=== PATIENT | female | born 1995 | race Two or more races ===

== ENCOUNTER 2024-03-18 09:54 | Observation (INO) | payer MEDICAID ==
[2024-03-18] MEDS ORDERED: PREN-96 PO (10:11)
== END 2024-03-18 11:37 | disposition home or self-care (01) ==
LOC: UNDOADMOB 10:02 → LDRP 10:02 → UNDODISOB 11:37
PROVIDERS: ADMIT Obstetrics & Gynecology; ATTEND Obstetrics & Gynecology
DX: O24.419 Gestational diabetes mellitus in pregnancy, unspecified control (principal); Z3A.38 38 weeks gestation of pregnancy
CPT/HCPCS: 59025; 76818; 81002; 82948; 94760; G0378

== ENCOUNTER 2024-03-25 09:22 | Observation (INO) | payer MEDICAID ==
[~2024-03-25 09:22] MED LIST: PREN-96 PO
== END 2024-03-25 12:42 | disposition home or self-care (01) ==
LOC: UNDOADMOB 11:00 → LDRP 11:00
PROVIDERS: ADMIT Obstetrics & Gynecology; ATTEND Obstetrics & Gynecology
DX: O24.419 Gestational diabetes mellitus in pregnancy, unspecified control (principal); Z3A.34 34 weeks gestation of pregnancy
CPT/HCPCS: 59025; 76818; 81002; 82948; 94760; G0378; 82962

== ENCOUNTER 2024-04-01 10:57 | Observation (INO) | payer MEDICAID | END 2024-04-01 12:38 | disposition home or self-care (01) | LOC: UNDOADMOB 10:57 → LDRP 10:57 → UNDODISOB 12:38 | PROVIDERS: ADMIT Obstetrics & Gynecology; ATTEND Obstetrics & Gynecology | DX: O24.419 Gestational diabetes mellitus in pregnancy, unspecified control (principal); Z3A.35 35 weeks gestation of pregnancy | CPT/HCPCS: 59025; 76818; 81002; 82962; 94760; G0378 ==

== ENCOUNTER 2024-04-08 10:47 | Observation (INO) | payer MEDICAID | END 2024-04-08 14:18 | disposition home or self-care (01) | LOC: LDRP 10:47 | PROVIDERS: ADMIT Obstetrics & Gynecology; ATTEND Obstetrics & Gynecology | DX: O24.419 Gestational diabetes mellitus in pregnancy, unspecified control (principal); Z3A.36 36 weeks gestation of pregnancy | CPT/HCPCS: 59025; 76818; 81002; 82948; 82962; 94760; G0378 ==

== ENCOUNTER 2024-04-15 08:10 | Observation (INO) | payer MEDICAID | END 2024-04-15 12:38 | disposition home or self-care (01) | LOC: LDRP 11:09 → UNDOADMOB 11:09 → LDRP 11:12 | PROVIDERS: ADMIT Obstetrics & Gynecology; ATTEND Obstetrics & Gynecology | DX: O24.419 Gestational diabetes mellitus in pregnancy, unspecified control (principal); O62.9 Abnormality of forces of labor, unspecified; O99.891 Other specified diseases and conditions complicating pregnancy; M54.9 Dorsalgia, unspecified; Z3A.37 37 weeks gestation of pregnancy | CPT/HCPCS: 59025; 76818; 81002; 82948; 82962; 94760; G0378 ==

== ENCOUNTER 2024-04-18 12:34 | Observation (INO) | payer MEDICAID | END 2024-04-18 13:15 | disposition left against medical advice (07) | LOC: LDRP 12:34 | PROVIDERS: ADMIT Obstetrics & Gynecology; ATTEND Obstetrics & Gynecology | DX: O24.419 Gestational diabetes mellitus in pregnancy, unspecified control (principal); Z3A.37 37 weeks gestation of pregnancy ==

== ENCOUNTER 2024-04-21 14:18 | Inpatient (IN) | payer MEDICAID ==
[~2024-04-21] VITALS: Ht 165.1 cm; Wt 81.6 kg
[2024-04-21] MEDS ORDERED: BUTORPHANOL TARTRATE 2 MG/1 ML VIAL IV PRN ×2 (17:00)
[2024-04-21] MEDS ORDERED: LIDOCAINE 2%HCL (LOCAL ANESTH.) INJ 20ML MDV IJ PRN (17:00)
[2024-04-21] MEDS: LACTATED RINGER'S 1,000 ML IV SCH (17:00)
[2024-04-21] MEDS: LACT. RINGERS/OXYTOCIN 20UNITS 1,000 ML IV SCH (17:00)
[2024-04-21 18:41] LABS: Alanine Aminotransferase 13 U/L (7-40); Albumin 4.1 g/dL (3.2-4.8); Alkaline Phosphatase 418 U/L (46-116); Anion Gap 10 (5-15); Aspartate Aminotransferase 14 U/L (13-40); Bilirubin, Total 0.5 mg/dL (0.2-1.0); Blood Urea Nitrogen 13 mg/dL (9-23); Calcium 9.6 mg/dL (8.5-10.1); Carbon Dioxide 20 mmol/L (20-30); Chloride 106 mmol/L (98-107); Glucose 89 mg/dL (74-106); Potassium 3.8 mmol/L (3.5-5.1); Sodium 136 mmol/L (136-145); Total Protein 7.2 g/dL (5.7-8.2)
[2024-04-21 18:41] LABS: Urine Bacteria None Seen /hpf (None Seen)
[2024-04-21 18:48] LABS: Basophils # (auto) 0 10 ^3/uL (0-0.2); Basophils % (auto) 0.4 % (0.0-2.0); Eosinophils # (auto) 0 10 ^3/uL (0-0.8); Eosinophils % (auto) 0.5 % (0.0-7.0); Hematocrit 37.9 % (36.0-46.0); Hemoglobin 12.7 g/dL (12.2-16.2); Lymphocytes # (auto) 1.7 10 ^3/uL (0.4-5.4); Lymphocytes % (auto) 19.1 % (10.0-50.0); Mean Corpuscular Hgb Conc. 33.4 g/dL (32.0-36.0); Mean Corpuscular Volume 83.6 fL (80.0-100.0); Monocytes # (auto) 0.6 10 ^3/uL (0-1.3); Monocytes % (auto) 6.6 % (0.0-12.0); Neutrophils # (auto) 6.7 10 ^3/uL (1.6-8.6); Neutrophils % (auto) 73.4 % (37.0-80.0); Nucleated Red Blood Cells % 0.2 %; Red Blood Cells 4.53 10^6/uL (4.0-5.20); Red Cell Distribution Width 15.5 % (11.8-14.3); White Blood Cell 9.1 10^3/uL (4.4-10.8)
[2024-04-21 19:03] LABS: INR 0.92 (0.9-1.15); Prothrombin Time 9.8 sec (9.3-11.8)
[2024-04-21] MEDS: NALOXONE HCL 0.4 MG/ML VIAL IV ONE (19:45)
[2024-04-21] MEDS: ePHEDrine SULFATE 50 MG/ML AMP ONE (19:47)
[2024-04-21] MEDS: fentaNYL CITRATE 100 MCG/2 ML VL ONE (19:49)
[2024-04-21] MEDS: LIDOCAINE HCL 2 %PF INJ 10ML AMP IJ ONE (19:49)
[2024-04-21 19:52] LABS: Urine Blood Negative /uL (Negative); Urine Clarity Clear (Clear); Urine Color Yellow (Yellow); Urine Mucus FEW (None Seen); Urine Protein, UAD TRACE (Negative); Urine Specific Gravity 1.029 (1.001-1.035); Urine Urobilinogen Normal (Negative); Urine WBC 1 /hpf (0 - 5); Urine pH 6.5 (5.0-9.0)
[2024-04-21] MEDS: PENICILLIN G POT 5MIL/D5 50ML 50 ML IV ONE (19:57)
[2024-04-21 19:59] LABS: Amphetamine Screen, Urine Neg (NEGATIVE); Barbiturate Scree,Urine Neg (NEGATIVE); Benzodiazephine Screen, Urine Neg (NEGATIVE); Cannabinoid Screen, Urine Neg (NEGATIVE); Cocaine Screen, Urine Neg (NEGATIVE); Opiate Scree,Urine Neg (NEGATIVE); Phencyclidine Screen, Urine Neg (NEGATIVE)
[2024-04-22] MEDS: PENICILLIN G POTASSIUM 2,500,000 UNITS in D5W 5% 50 ML IV SCH
[2024-04-22] MEDS: LACT. RINGERS/OXYTOCIN 20UNITS 500 ML IV ONE ×2 (02:15→02:37)
[2024-04-22] MEDS: ROPIVACAINE HCL 200 ML ONE (02:30)
[2024-04-22] MEDS: fentaNYL CITRATE 100 MCG/2 ML VL IV ONE (02:35)
[2024-04-22] MEDS: ePHEDrine SULFATE 50 MG/ML AMP IV ONE (02:38)
[2024-04-22] MEDS: MINERAL OIL TOPICAL 10ml TOP ONE ×2 (02:39)
[2024-04-22] MEDS: DERMOPLAST 60ML BOTTLE TOP PRN (02:53)
[2024-04-22] MEDS: WITCH HAZEL-GLYCERIN PAD TOP PRN (02:53)
[2024-04-22] MEDS: PHISODERM TOP SOLN 240ML BTL TOP PRN (02:53)
[2024-04-22] MEDS ORDERED: IBUPROFEN 600 MG TAB PO PRN (05:00)
[2024-04-22] MEDS ORDERED: ONDANSETRON ODT 4 MG TAB PO PRN (05:00)
[2024-04-22 07:00] VITALS: BP 110/65; PULSE 88; RESP 16; TEMP 98.3; O2SAT 97
[2024-04-22 11:00] VITALS: BP 105/62; PULSE 85; RESP 20; TEMP 98.3; O2SAT 95
[2024-04-22] MEDS: ACETAMINOPHEN 325 MG TAB PO PRN (11:42)
[2024-04-22 14:30] VITALS: BP 109/70; PULSE 80; RESP 16; TEMP 97.8; O2SAT 97
[2024-04-22 19:25] VITALS: BP 111/73; PULSE 86; RESP 18; TEMP 98.1; O2SAT 97
[2024-04-22 21:56] LABS: Basophils # (auto) 0 10 ^3/uL (0-0.2); Basophils % (auto) 0.2 % (0.0-2.0); Eosinophils # (auto) 0.1 10 ^3/uL (0-0.8); Eosinophils % (auto) 0.6 % (0.0-7.0); Hematocrit 35.3 % (36.0-46.0); Hemoglobin 11.2 g/dL (12.2-16.2); Lymphocytes # (auto) 3.1 10 ^3/uL (0.4-5.4); Mean Corpuscular Hemoglobin 27.2 pg (28.0-32.0); Mean Corpuscular Hgb Conc. 31.8 g/dL (32.0-36.0); Mean Corpuscular Volume 85.5 fL (80.0-100.0); Monocytes # (auto) 1.3 10 ^3/uL (0-1.3); Monocytes % (auto) 9.6 % (0.0-12.0); Neutrophils # (auto) 8.9 10 ^3/uL (1.6-8.6); Neutrophils % (auto) 66.6 % (37.0-80.0); Nucleated Red Blood Cells % 0.2 %; Red Blood Cells 4.13 10^6/uL (4.0-5.20); Red Cell Distribution Width 15.9 % (11.8-14.3); White Blood Cell 13.4 10^3/uL (4.4-10.8)
[2024-04-22] MEDS: DOCUSATE SOD 100 MG CAP PO SCH (22:00)
[2024-04-22] MEDS ORDERED: DOCU-265 PO (22:13)
[2024-04-22] MEDS ORDERED: IBU600T PO (22:13)
[2024-04-22 23:00] VITALS: BP 106/65; PULSE 85; RESP 16; TEMP 97.8; O2SAT 97
[2024-04-23 03:00] VITALS: RESP 16
[2024-04-23 07:00] VITALS: BP 109/70; PULSE 87; RESP 17; TEMP 98.4; O2SAT 97
[2024-04-23 07:07] LABS: RPR Non Reactive (Non Reactive)
[2024-04-27 18:06] LABS: Treponema pallidum Ab (FTA-Ab) Non Reactive (Non Reactive)
== END 2024-04-23 09:18 | disposition home or self-care (01) | DRG 560 ==
LOC: UNDOADMOB 14:18 → LDRP 14:18 → INTOOBSV 16:35 → OBSVTOIN 16:35 → LDRP 04-22 08:25
PROVIDERS: ADMIT Obstetrics & Gynecology; ATTEND Nurse Practitioner Women's Health
PROC: 10E0XZZ Delivery of Products of Conception, External Approach (ICD-10-PCS; principal; 2024-04-22)
PROC: 10907ZC Drainage of Amniotic Fluid, Therapeutic from Products of Conception, Via Natural or Artificial Opening (ICD-10-PCS; 2024-04-22)
PROC: 3E0R3BZ Introduction of Anesthetic Agent into Spinal Canal, Percutaneous Approach (ICD-10-PCS; 2024-04-22)
PROC: 00HU33Z Insertion of Infusion Device into Spinal Canal, Percutaneous Approach (ICD-10-PCS; 2024-04-22)
DX: O99.824 Streptococcus B carrier state complicating childbirth (principal); Z37.0 Single live birth; O24.420 Gestational diabetes mellitus in childbirth, diet controlled; O69.81X0 Labor and delivery complicated by cord around neck, without compression, not applicable or unspecified; O77.0 Labor and delivery complicated by meconium in amniotic fluid; Z3A.38 38 weeks gestation of pregnancy
CPT/HCPCS: 36415; 59025; 59409; 62282; 76818; 80053; 80307; 81001; 82948; 82962; 85025; 85610; 85730; 86592; 86850; 86900; 86901; 94760; 96360; 96361; 96365; 96366; G0378; J2540; J2590; J7060